=== PATIENT | male | born 1985 | race Hispanic/Latino ===

== ENCOUNTER 2017-11-23 10:09 | Emergency (ER) | payer OTHER ==
[~2017-11-23] VITALS: Ht 177.8 cm; Wt 79.5 kg
[2017-11-23] MEDS ORDERED: SKELAXIN800 MG PO (10:47)
[2017-11-23] MEDS ORDERED: MOTRIN800 MG PO (10:47)
[2017-11-23 11:16] VITALS: BP 119/89
== END 2017-11-23 11:18 | disposition home or self-care (01) ==
LOC: EME 10:09
DX: M54.2 Cervicalgia (principal); M54.9 Dorsalgia, unspecified; V49.50XA Passenger injured in collision with unspecified motor vehicles in traffic accident, initial encounter; Y92.410 Unspecified street and highway as the place of occurrence of the external cause; E11.9 Type 2 diabetes mellitus without complications; Z87.891 Personal history of nicotine dependence
CPT/HCPCS: 99281; 99284

== ENCOUNTER 2017-12-01 14:19 | Emergency (ER) | payer OTHER ==
[~2017-12-01] VITALS: Ht 177.8 cm; Wt 79.3 kg
[~2017-12-01 14:19] MED LIST: MOTRIN800 MG PO; SKELAXIN800 MG PO
[2017-12-01] MEDS ORDERED: TRAZODONE HCL150 MG PO (14:47)
[2017-12-01] MEDS ORDERED: CLOMIPRAMINE HC25 MG PO (14:47)
[2017-12-01 15:04] VITALS: BP 123/83
== END 2017-12-01 15:05 | disposition home or self-care (01) ==
LOC: EME 14:19
DX: F32.9 Major depressive disorder, single episode, unspecified (principal); Z76.0 Encounter for issue of repeat prescription; F90.9 Attention-deficit hyperactivity disorder, unspecified type; E10.9 Type 1 diabetes mellitus without complications; Z87.891 Personal history of nicotine dependence
CPT/HCPCS: 99281; 99283

== ENCOUNTER 2018-01-08 17:30 | Emergency (ER) | payer OTHER ==
[~2018-01-08] VITALS: Ht 170.2 cm; Wt 79.1 kg
[~2018-01-08 17:30] MED LIST changes: +CLOMIPRAMINE HC25 MG PO; +TRAZODONE HCL150 MG PO
[2018-01-08 18:12] LABS: BASOPHIL (%) 0.4 % (0-1); EOSINOPHIL (%) 1.3 % (0-5); EOSINOPHIL COUNT 0.1 K/uL (0-0.3); HEMATOCRIT 38.5 % (38.0-50.0); IMMATURE GRANULOCYTE (%) 0.2 % (0.0-0.7); LYMPHOCYTE (%) 21.9 % (15-42); LYMPHOCYTE COUNT 2.1 K/uL (1.0-2.8); MCH 29.5 PG (29.0-34.0); MCHC 33.8 G/DL (30.0-36.0); MCV 87.5 FL (86-99); MONOCYTE (%) 6.5 % (3-12); MONOCYTE COUNT 0.6 K/uL (0-0.8); NEUTROPHIL (%) 69.7 % (45-76); NEUTROPHIL COUNT 6.7 K/uL (1.8-6.4); PLATELET COUNT 239 K/uL (156-360); RBC DIS.WIDTH-CV 13.7 % (11.8-14.6); RBC DIS.WIDTH-SD 44.3 % (39-53); WHITE BLOOD COUNT 9.6 K/uL (4.1-10.2)
[2018-01-08 18:23] LABS: CHLORIDE 104 mEq/L (99-109); POTASSIUM 3.9 mEq/L (3.7-5.4); SODIUM 141 mEq/L (136-147)
[2018-01-08 18:24] LABS: ALBUMIN 3.9 g/dL (3.2-4.8); MAGNESIUM 2.1 mg/dL (1.3-2.7)
[2018-01-08 18:26] LABS: GLUCOSE 85 mg/dL (70-99); TOTAL PROTEIN 5.6 g/dL (6.4-8.3)
[2018-01-08 18:28] LABS: TOTAL BILIRUBIN 0.5 mg/dL (0.0-1.0)
[2018-01-08 18:29] LABS: SERUM ETHYL ALCOHOL < 10 mg/dL
[2018-01-08 18:30] LABS: ALKALINE PHOSPHATASE 60 IU/L (3-129); GFR ESTIMATE (CALCULATED) > 59 mL/min/ (58.99-99999)
[2018-01-08 18:31] LABS: AST (GOT) 20 IU/L (2-34); UREA NITROGEN (BUN) 20 mg/dL (9-23)
[2018-01-08 18:33] LABS: ALT (GPT) 16 IU/L (3-49)
[2018-01-08 19:15] VITALS: BP 117/71
== END 2018-01-08 19:16 | disposition home or self-care (01) ==
LOC: EME 17:30
PROVIDERS: Emergency Medicine
DX: R45.1 Restlessness and agitation (principal); E11.9 Type 2 diabetes mellitus without complications; Z87.891 Personal history of nicotine dependence
CPT/HCPCS: 80053; 81003; 82948; 83735; 85025; 99281; 99283; G0480